=== PATIENT | male | born 1940 | race Asian ===

== ENCOUNTER 2017-02-27 04:08 | Inpatient (IN) | payer MEDICARE, OTHER ==
[2017-02-26 14:06] LABS: ASPARTATE AMINO TRANSFERASE 28 U/L (15-37); BLOOD UREA NITROGEN 18 mg/dL (7-18)
[2017-02-26 14:14] LABS: PATH.CAST-FLAG NOT PRESENT; SPERM-FLAG NOT PRESENT; SRC-FLAG NOT PRESENT; XTAL-FLAG NOT PRESENT; YLC-FLAG NOT PRESENT
[~2017-02-27] VITALS: Ht 162.6 cm; Wt 76.0 kg
[~2017-02-27 04:08] MED LIST: ASPI-515 PO; ATOR40TA78 PO; CETI10TA24 PO; CLOP75TA22 PO; IRON PO; LINA5TAB PO; METF500T4 PO; NITR0.4T SL; PIOG30TA8 PO; VALS160T3 PO
[2017-02-27 05:16] VITALS: BP_SYST 145; BP_SYST 146; BP_DIAS 72; BP_DIAS 75
[2017-02-27] MEDS ORDERED: CHLORHEXIDINE MOUTHWASH 15 ML UDC MM SCH (05:30)
[2017-02-27] MEDS ORDERED: DO NOT GIVE MC SCH (05:30)
[2017-02-27] MEDS ORDERED: INSULIN ASPART 100 UNITS/ML, PEN SQ-INSULIN SCH (06:00)
[2017-02-27] MEDS ORDERED: FENTANYL PF 1000 MCG/20ML ONE (06:48)
[2017-02-27] MEDS ORDERED: MIDAZOLAM 10MG/2 ML ONE (06:48)
[2017-02-27] MEDS ORDERED: POTASSIUM CHLORIDE 80 MEQ, SODIUM BICARBONATE 8.4% 10 MEQ, MAGNESIUM SULFATE 0.5 GM, LI... IV PRN (07:30)
[2017-02-27] MEDS ORDERED: ALBUMIN HUMAN 5% 500 ML IV ONE (07:30)
[2017-02-27] MEDS ORDERED: MANNITOL PMX 20% 500 ML IVPB PRN (07:30)
[2017-02-27] MEDS ORDERED: EPINEPHRINE 2 MG in SODIUM CHLORIDE 0.9% 248 ML IV SCH (07:30)
[2017-02-27] MEDS ORDERED: REGULAR INSULIN 62.5 UNITS in SODIUM CHLORIDE 0.9% 249.375 ML IV PRN ×2 (07:30→11:20)
[2017-02-27] MEDS ORDERED: PHENYLEPHRINE 10 MG in SODIUM CHLORIDE 0.9% 249 ML IV PRN (07:30)
[2017-02-27] MEDS ORDERED: CEFUROXIME 1.5 GM in SODIUM CHLORIDE 0.9% 50 ML IVPB PRN (07:30)
[2017-02-27] MEDS ORDERED: DEXMEDETOMIDINE 200 MCG in SODIUM CHLORIDE 0.9% 48 ML IV SCH (07:30)
[2017-02-27] MEDS ORDERED: VANCOMYCIN 1,100 MG in SODIUM CHLORIDE 0.9% 250 ML IV PRN (07:30)
[2017-02-27] MEDS ORDERED: MUPIROCIN OINT 2%, 22GM TP SCH (09:00)
[2017-02-27] MEDS ORDERED: SODIUM CHLORIDE FLUSH 10ML SYR IVF SCH (09:00)
[2017-02-27] MEDS ORDERED: FENTANYL PF 250 MCG/5ML ONE (09:51)
[2017-02-27] MEDS ORDERED: SODIUM CHLORIDE 0.9% 1,000 ML IV PRN (11:20)
[2017-02-27] MEDS ORDERED: NITROGLYCERIN/D5W PMX 250 ML IV PRN (11:20)
[2017-02-27] MEDS ORDERED: DOBUTAMINE 250 MG in SODIUM CHLORIDE 0.9% 230 ML IV PRN (11:20)
[2017-02-27] MEDS ORDERED: DEXMEDETOMIDINE 200 MCG in SODIUM CHLORIDE 0.9% 48 ML IV PRN (11:20)
[2017-02-27] MEDS ORDERED: CLEVIDIPINE 50 ML IV PRN (11:20)
[2017-02-27] MEDS ORDERED: PROCHLORPERAZINE 5 MG/ML, 2ML IVPush PRN (11:30)
[2017-02-27] MEDS ORDERED: DEXTROSE 50%, 50ML SYRINGE IVPush PRN (11:30)
[2017-02-27] MEDS ORDERED: GLUCAGON 1 MG IM PRN (11:30)
[2017-02-27] MEDS ORDERED: SODIUM BICARB 8.4%, 50ML SYRINGE IV PRN (11:30)
[2017-02-27] MEDS ORDERED: BISACODYL 10 MG SUPP PR PRN (11:30)
[2017-02-27] MEDS ORDERED: MEPERIDINE/PF 25MG/0.5ML IVPush PRN (11:30)
[2017-02-27] MEDS ORDERED: DEXTROSE 4 GM TAB.CHEW PO PRN (11:30)
[2017-02-27] MEDS ORDERED: morphine SULFATE 10 MG/ML, 1ML IVPush PRN (11:30)
[2017-02-27] MEDS ORDERED: ACETAMINOPHEN 325 MG TABLET PO PRN (11:30)
[2017-02-27] MEDS ORDERED: BISACODYL 5 MG EC TABLET PO PRN (11:30)
[2017-02-27] MEDS ORDERED: ONDANSETRON 2MG/ML, 2ML IVPush PRN (11:30)
[2017-02-27] MEDS ORDERED: MIDAZOLAM 1 MG/ML, 5ML IVPush PRN (11:30)
[2017-02-27] MEDS ORDERED: ACETAMINOPHEN 650 MG SUPP PR PRN (11:30)
[2017-02-27] MEDS: KSCALE TO 4.5 IV SCH ×3 (11:30→23:30)
[2017-02-27] MEDS ORDERED: ALBUMIN HUMAN 25% 50 ML ONE (11:43)
[2017-02-27] MEDS ORDERED: SODIUM BICARB 8.4%, 50ML SYRINGE ONE (11:43)
[2017-02-27] MEDS ORDERED: CALCIUM CHLORIDE 10%, 10ML SYR ONE (11:43)
[2017-02-27] MEDS ORDERED: PROTAMINE SULFATE 10 MG/ML, 25ML ONE (11:43)
[2017-02-27] MEDS ORDERED: AMINOCAPROIC ACID 250 MG/ML, 20ML ONE (11:44)
[2017-02-27] MEDS ORDERED: HEPARIN 1,000 UNITS/ML, 10ML ONE (11:44)
[2017-02-27] MEDS ORDERED: LIDOCAINE 2% 100MG/5ML SYRINGE ONE (11:44)
[2017-02-27] MEDS ORDERED: PAPAVERINE 30 MG/ML, 2ML ONE (11:44)
[2017-02-27] MEDS ORDERED: HEPARIN 1,000 UNITS/ML, 30ML ONE (11:44)
[2017-02-27 11:54] LABS: ABG COLLECTION SITE ARTERIAL LINE
[2017-02-27] MEDS: MAGNESIUM SULFATE 1 GM in SODIUM CHLORIDE 0.9% 50 ML IVPB SCH (12:11)
[2017-02-27] MEDS ORDERED: POTASSIUM CHLORIDE 30 MEQ in SODIUM CHLORIDE 0.9% 100 ML IV ONE (12:30)
[2017-02-27 12:43] VITALS: BP 90/55
[2017-02-27 12:58] VITALS: BP 100/63
[2017-02-27 13:15] VITALS: BP 90/44
[2017-02-27 13:57] VITALS: BP 92/50
[2017-02-27] MEDS: LACTATED RINGERS 500 ML IVBOLUS PRN ×2 (14:06→15:37)
[2017-02-27] MEDS ORDERED: AMIODARONE 900 MG in DEXTROSE 5% 482 ML IV PRN (15:00)
[2017-02-27] MEDS ORDERED: AMIODARONE 150 MG in DEXTROSE 5% 100 ML IV ONE (15:00)
[2017-02-27] MEDS ORDERED: FILTER 0.22 MICRON IV PRN (15:30)
[2017-02-27] MEDS: PHENYLEPHRINE 10 MG in SODIUM CHLORIDE 0.9% 249 ML IV PRN ×3 (15:52→22:45)
[2017-02-27] MEDS: SODIUM BICARBONATE 1 MEQ/ML, 50ML VIAL IV PRN ×2 (16:29→17:29)
[2017-02-27] MEDS: EPINEPHRINE 2 MG in SODIUM CHLORIDE 0.9% 248 ML IV PRN ×3 (16:42→22:50)
[2017-02-27] MEDS ORDERED: POTASSIUM CHLORIDE PMX 100 ML IV ONE (18:30)
[2017-02-27] MEDS: CEFUROXIME 1.5 GM in SODIUM CHLORIDE 0.9% 50 ML IVPB SCH (18:42)
[2017-02-27] MEDS: VANCOMYCIN 1,100 MG in SODIUM CHLORIDE 0.9% 250 ML IVPB SCH (19:18)
[2017-02-27] MEDS: SODIUM CHLORIDE FLUSH 10ML SYR IVF SCH (20:42)
[2017-02-27] MEDS: MUPIROCIN OINT 2%, 22GM NAS SCH (20:42)
[2017-02-27] MEDS: HYDROcodone/APAP 10/325 MG TABLET PO PRN (20:42)
[2017-02-27] MEDS: DOCUSATE 100 MG CAPSULE PO SCH (20:42)
[2017-02-27] MEDS: INSULIN ASPART 100 UNITS/ML, PEN SQ-INSULIN PRN ×2 (22:48→23:55)
[2017-02-27] MEDS: OXYcodone IR 5MG TABLET PO PRN (23:58)
[2017-02-28] VITALS (9 sets, daily range): BP systolic 91–169; BP diastolic 58–106
[2017-02-28] MEDS: INSULIN ASPART 100 UNITS/ML, PEN SQ-INSULIN PRN ×3 (01:09→03:06)
[2017-02-28] MEDS: EPINEPHRINE 2 MG in SODIUM CHLORIDE 0.9% 248 ML IV PRN ×3 (01:57→09:22)
[2017-02-28] MEDS: PHENYLEPHRINE 10 MG in SODIUM CHLORIDE 0.9% 249 ML IV PRN ×3 (01:58→09:27)
[2017-02-28] MEDS: HYDROcodone/APAP 10/325 MG TABLET PO PRN ×2 (02:12→20:33)
[2017-02-28] MEDS: OXYcodone IR 5MG TABLET PO PRN (04:14)
[2017-02-28] MEDS: KSCALE TO 4.5 IV SCH ×3 (05:30→16:03)
[2017-02-28 05:59] LABS: ABG COLLECTION SITE ARTERIAL LINE
[2017-02-28 06:33] LABS: DIFF TOTAL CELLS COUNTED 100 CELL DIFF
[2017-02-28 06:40] LABS: POLYCHROMASIA 1+
[2017-02-28 06:43] LABS: BLOOD UREA NITROGEN 20 mg/dL (7-18)
[2017-02-28 06:47] LABS: VERIFY COUNTS? YES
[2017-02-28] MEDS ORDERED: ROCURONIUM 10 MG/ML ONE ×2 (07:07→11:53)
[2017-02-28] MEDS ORDERED: PROPOFOL 10 MG/ML, 20ML ONE ×2 (07:07→11:53)
[2017-02-28] MEDS: VANCOMYCIN 1,100 MG in SODIUM CHLORIDE 0.9% 250 ML IVPB SCH (08:57)
[2017-02-28] MEDS: CEFUROXIME 1.5 GM in SODIUM CHLORIDE 0.9% 50 ML IVPB SCH (08:57)
[2017-02-28] MEDS: DOCUSATE 100 MG CAPSULE PO SCH ×3 (09:00→20:33)
[2017-02-28] MEDS: ASPIRIN 81 MG TABLET EC PO SCH (09:00)
[2017-02-28] MEDS: PANTOPRAZOLE 40 MG IV IVPush SCH (09:13)
[2017-02-28] MEDS: MUPIROCIN OINT 2%, 22GM NAS SCH ×2 (09:13→20:18)
[2017-02-28] MEDS: SODIUM CHLORIDE FLUSH 10ML SYR IVF SCH ×2 (09:14→20:18)
[2017-02-28] MEDS ORDERED: DEXTROSE 50%, 50ML VIAL ONE (09:16)
[2017-02-28] MEDS ORDERED: DEXTROSE 50%, 50ML SYRINGE IVPush ONE (09:30)
[2017-02-28] MEDS ORDERED: FENTANYL PF 250 MCG/5ML ONE (10:38)
[2017-02-28] MEDS: MAGNESIUM SULFATE 1 GM in SODIUM CHLORIDE 0.9% 50 ML IVPB SCH (11:19)
[2017-02-28] MEDS: CHLORHEXIDINE MOUTHWASH 15 ML UDC MM SCH (11:30)
[2017-02-28] MEDS ORDERED: VASOPRESSIN 20 UNIT/ML, 1ML ONE (11:53)
[2017-02-28] MEDS ORDERED: MIDAZOLAM 10MG/2 ML ONE (12:27)
[2017-02-28] MEDS ORDERED: FENTANYL 100 MCG PATCH ONE (13:31)
[2017-02-28] MEDS ORDERED: FENTANYL PF 100 MCG/2ML ONE (13:32)
[2017-02-28] MEDS ORDERED: CLEVIDIPINE 100 ML IV ONE (13:49)
[2017-02-28] MEDS ORDERED: HEPARIN 1,000 UNITS/ML, 30ML ONE (13:55)
[2017-02-28] MEDS ORDERED: AMINOCAPROIC ACID 250 MG/ML, 20ML ONE (13:55)
[2017-02-28] MEDS ORDERED: FENTANYL PF 100 MCG/2ML IV ONE (14:00)
[2017-02-28] MEDS: LACTATED RINGERS 500 ML IVBOLUS PRN ×2 (14:00→22:00)
[2017-02-28 15:55] LABS: ABG COLLECTION SITE ARTERIAL LINE
[2017-02-28] MEDS: SODIUM BICARBONATE 1 MEQ/ML, 50ML VIAL IV PRN (16:13)
[2017-02-28] MEDS ORDERED: WARFARIN 5 MG TABLET PO-COUM ONE (18:00)
[2017-02-28 18:32] LABS: ABG COLLECTION SITE RIGHT RADIAL; COLLATERAL CIRCULATION TESTING NORMAL
[2017-03-01] MEDS: HYDROcodone/APAP 10/325 MG TABLET PO PRN ×4 (00:02→19:52)
[2017-03-01] MEDS: INSULIN ASPART 100 UNITS/ML, PEN SQ-INSULIN PRN ×3 (01:12→20:04)
[2017-03-01 04:52] LABS: ABG COLLECTION SITE RIGHT RADIAL; COLLATERAL CIRCULATION TESTING NORMAL
[2017-03-01 04:59] LABS: BLOOD UREA NITROGEN 24 mg/dL (7-18)
[2017-03-01 05:24] LABS: DIFF TOTAL CELLS COUNTED 100 CELL DIFF
[2017-03-01 05:25] LABS: POLYCHROMASIA 1+
[2017-03-01 05:26] LABS: ANISOCYTOSIS 1+
[2017-03-01 05:46] VITALS: BP 121/69
[2017-03-01 06:23] LABS: VERIFY COUNTS? YES
[2017-03-01] MEDS ORDERED: ALBUTEROL SULFATE 2.5 MG/3 ML ONE (06:42)
[2017-03-01] MEDS: ALBUTEROL SULFATE 2.5 MG/3 ML NPPB SCH ×4 (06:45→19:21)
[2017-03-01] MEDS: FUROSEMIDE 20 MG/2 ML IV SCH (08:59)
[2017-03-01] MEDS: SODIUM CHLORIDE FLUSH 10ML SYR IVF SCH ×2 (09:01→19:54)
[2017-03-01] MEDS: MUPIROCIN OINT 2%, 22GM NAS SCH ×2 (09:01→19:54)
[2017-03-01] MEDS: PANTOPRAZOLE 40 MG IV IVPush SCH (09:01)
[2017-03-01] MEDS: ASPIRIN 81 MG TABLET EC PO SCH (09:02)
[2017-03-01] MEDS: POTASSIUM CHLORIDE 10 MEQ TABLET.ER PO SCH (09:02)
[2017-03-01] MEDS: DOCUSATE 100 MG CAPSULE PO SCH (09:04)
[2017-03-01] MEDS: OXYcodone IR 5MG TABLET PO PRN ×2 (09:12→17:44)
[2017-03-01] MEDS: PIPERACILLIN/TAZO/PMX 3.375GM 50 ML IV SCH ×3 (11:47→20:39)
[2017-03-01] MEDS: CHLORHEXIDINE MOUTHWASH 15 ML UDC MM SCH ×2 (13:31)
[2017-03-01] MEDS: MAGNESIUM SULFATE 1 GM in SODIUM CHLORIDE 0.9% 50 ML IVPB SCH (13:32)
[2017-03-01] MEDS: ENOXAPARIN 40 MG/0.4 ML SQ SCH (14:34)
[2017-03-01] MEDS ORDERED: FUROSEMIDE 40 MG/4 ML IV ONE ×2 (15:30→20:00)
[2017-03-01] MEDS ORDERED: POTASSIUM CHLORIDE 10 MEQ TABLET.ER PO ONE (17:00)
[2017-03-01] MEDS ORDERED: WARFARIN 5 MG TABLET PO-COUM ONE (18:00)
[2017-03-02] MEDS: HYDROcodone/APAP 10/325 MG TABLET PO PRN ×2 (00:02→04:23)
[2017-03-02] MEDS: CHLORHEXIDINE MOUTHWASH 15 ML UDC MM SCH (00:02)
[2017-03-02] MEDS: PIPERACILLIN/TAZO/PMX 3.375GM 50 ML IV SCH ×4 (03:03→20:39)
[2017-03-02 04:42] LABS: BLOOD UREA NITROGEN 33 mg/dL (7-18)
[2017-03-02] MEDS: ALBUTEROL SULFATE 2.5 MG/3 ML NPPB SCH ×5 (05:06→19:38)
[2017-03-02] MEDS: INSULIN ASPART 100 UNITS/ML, PEN SQ-INSULIN PRN ×3 (05:14→11:49)
[2017-03-02 06:20] VITALS: BP 98/63
[2017-03-02] MEDS: MUPIROCIN OINT 2%, 22GM NAS SCH ×2 (08:31→20:38)
[2017-03-02] MEDS: POTASSIUM CHLORIDE 10 MEQ TABLET.ER PO SCH (08:31)
[2017-03-02] MEDS: ASPIRIN 81 MG TABLET EC PO SCH (08:31)
[2017-03-02] MEDS: PANTOPRAZOLE 40 MG IV IVPush SCH (08:31)
[2017-03-02] MEDS: SODIUM CHLORIDE FLUSH 10ML SYR IVF SCH ×2 (08:32→20:39)
[2017-03-02] MEDS: ENOXAPARIN 40 MG/0.4 ML SQ SCH (08:32)
[2017-03-02] MEDS: FUROSEMIDE 20 MG/2 ML IV SCH (08:32)
[2017-03-02 09:07] LABS: DIFF TOTAL CELLS COUNTED 100 CELL DIFF
[2017-03-02 09:10] LABS: ANISOCYTOSIS 1+; POLYCHROMASIA 1+; VERIFY COUNTS? YES
[2017-03-02] MEDS: ALBUTEROL SULFATE 2.5 MG/3 ML NPPB PRN (17:00)
[2017-03-02] MEDS ORDERED: WARFARIN 7.5 MG TABLET PO-COUM ONE (18:00)
[2017-03-02] MEDS ORDERED: INSULIN ASPART 100 UNITS/ML, PEN SQ-INSULIN PRN (20:00)
[2017-03-02] MEDS: DOCUSATE 100 MG CAPSULE PO SCH (20:38)
[2017-03-02] MEDS: INSULIN ASPART 100 UNITS/ML, PEN SQ-INSULIN SCH (20:38)
[2017-03-03] MEDS: INSULIN ASPART 100 UNITS/ML, PEN SQ-INSULIN SCH ×6 (00:30→20:30)
[2017-03-03] MEDS: PIPERACILLIN/TAZO/PMX 3.375GM 50 ML IV SCH ×4 (03:09→21:03)
[2017-03-03 05:00] LABS: BLOOD UREA NITROGEN 39 mg/dL (7-18)
[2017-03-03] MEDS: PANTOPRAZOLE 40 MG IV IVPush SCH (08:25)
[2017-03-03] MEDS: ASPIRIN 81 MG TABLET EC PO SCH (08:25)
[2017-03-03] MEDS: POTASSIUM CHLORIDE 10 MEQ TABLET.ER PO SCH (08:25)
[2017-03-03] MEDS: SODIUM CHLORIDE FLUSH 10ML SYR IVF SCH ×2 (08:26→21:03)
[2017-03-03] MEDS: MUPIROCIN OINT 2%, 22GM NAS SCH ×2 (08:26→21:03)
[2017-03-03] MEDS: ENOXAPARIN 40 MG/0.4 ML SQ SCH (08:26)
[2017-03-03] MEDS: DOCUSATE 100 MG CAPSULE PO SCH ×2 (08:26→21:03)
[2017-03-03] MEDS: ALBUTEROL SULFATE 2.5 MG/3 ML NPPB SCH (09:40)
[2017-03-03] MEDS ORDERED: CEFAZOLIN PMX 1GM/50ML 50 ML IVPB ONE (12:00)
[2017-03-03] MEDS ORDERED: WARFARIN 2 MG TABLET PO-COUM ONE (18:00)
[2017-03-04] MEDS: SODIUM CHLORIDE 0.9% 1,000 ML IV SCH ×3 (00:24→18:00)
[2017-03-04] MEDS: INSULIN ASPART 100 UNITS/ML, PEN SQ-INSULIN SCH ×6 (00:27→20:56)
[2017-03-04] MEDS: PIPERACILLIN/TAZO/PMX 3.375GM 50 ML IV SCH ×4 (03:20→21:45)
[2017-03-04 04:22] LABS: BLOOD UREA NITROGEN 33 mg/dL (7-18)
[2017-03-04] MEDS: PANTOPRAZOLE 40 MG IV IVPush SCH (08:03)
[2017-03-04] MEDS: DOCUSATE 100 MG CAPSULE PO SCH ×2 (08:23→21:45)
[2017-03-04] MEDS: MUPIROCIN OINT 2%, 22GM NAS SCH (08:23)
[2017-03-04] MEDS: POTASSIUM CHLORIDE 10 MEQ TABLET.ER PO SCH (08:23)
[2017-03-04] MEDS: SODIUM CHLORIDE FLUSH 10ML SYR IVF SCH ×2 (08:46→21:45)
[2017-03-04] MEDS: ASPIRIN 81 MG TABLET EC PO SCH (08:51)
[2017-03-04] MEDS ORDERED: ENOXAPARIN 30 MG/0.3 ML SQ SCH (09:00)
[2017-03-04] MEDS ORDERED: FUROSEMIDE 40 MG/4 ML IV ONE (12:00)
[2017-03-05] MEDS: INSULIN ASPART 100 UNITS/ML, PEN SQ-INSULIN SCH ×6 (00:45→20:04)
[2017-03-05] MEDS ORDERED: FUROSEMIDE 20 MG/2 ML IV ONE (03:30)
[2017-03-05] MEDS: PIPERACILLIN/TAZO/PMX 3.375GM 50 ML IV SCH ×2 (03:58→08:50)
[2017-03-05 05:20] LABS: BLOOD UREA NITROGEN 28 mg/dL (7-18)
[2017-03-05 06:00] VITALS: BP 95/65
[2017-03-05] MEDS ORDERED: FUROSEMIDE 40 MG/4 ML IV ONE (06:00)
[2017-03-05] MEDS: DOCUSATE 100 MG CAPSULE PO SCH ×2 (08:50→20:04)
[2017-03-05] MEDS: SODIUM CHLORIDE FLUSH 10ML SYR IVF SCH ×2 (08:50→20:04)
[2017-03-05] MEDS: PANTOPROZOLE 40MG TABLET PO SCH (08:50)
[2017-03-05] MEDS: POTASSIUM CHLORIDE 10 MEQ TABLET.ER PO SCH (08:51)
[2017-03-05] MEDS: ASPIRIN 81 MG TABLET EC PO SCH (08:51)
[2017-03-05] MEDS: GUAIFENESIN ER 600 MG TABLET PO SCH ×2 (10:10→20:04)
[2017-03-05] MEDS: ALBUTEROL SULFATE 2.5 MG/3 ML NPPB PRN (13:58)
[2017-03-05] MEDS: FUROSEMIDE 40 MG/4 ML IV SCH (16:40)
[2017-03-06 05:01] LABS: BLOOD UREA NITROGEN 22 mg/dL (7-18)
[2017-03-06 06:30] VITALS: BP 107/68
[2017-03-06] MEDS: POTASSIUM CHLORIDE 20 MEQ TAB.ER.PRT PO SCH ×2 (08:00→17:39)
[2017-03-06] MEDS: ASPIRIN 81 MG TABLET EC PO SCH (08:20)
[2017-03-06] MEDS: DOCUSATE 100 MG CAPSULE PO SCH ×2 (08:20→19:27)
[2017-03-06] MEDS: PANTOPROZOLE 40MG TABLET PO SCH (08:20)
[2017-03-06] MEDS: POTASSIUM CHLORIDE 10 MEQ TABLET.ER PO SCH (08:20)
[2017-03-06] MEDS: GUAIFENESIN ER 600 MG TABLET PO SCH ×2 (08:20→17:39)
[2017-03-06] MEDS: FUROSEMIDE 40 MG/4 ML IV SCH ×2 (08:21→17:39)
[2017-03-06] MEDS: SODIUM CHLORIDE FLUSH 10ML SYR IVF SCH ×2 (09:00→19:27)
[2017-03-06] MEDS: INSULIN ASPART 100 UNITS/ML, PEN SQ-INSULIN SCH ×4 (09:19→19:36)
[2017-03-07 03:39] LABS: BLOOD UREA NITROGEN 20 mg/dL (7-18)
[2017-03-07 06:49] VITALS: BP 111/71
[2017-03-07] MEDS: INSULIN ASPART 100 UNITS/ML, PEN SQ-INSULIN SCH ×4 (07:00→20:10)
[2017-03-07] MEDS ORDERED: MIDAZOLAM 1 MG/ML, 5ML ONE (07:49)
[2017-03-07] MEDS ORDERED: FENTANYL PF 100 MCG/2ML ONE (07:49)
[2017-03-07] MEDS ORDERED: CEFAZOLIN 1,000 MG ONE (07:50)
[2017-03-07] MEDS ORDERED: LIDOCAINE 2%, 20ML ONE (07:50)
[2017-03-07] MEDS ORDERED: CEFAZOLIN PMX 1GM/50ML 50 ML ONE (07:50)
[2017-03-07] MEDS: PANTOPROZOLE 40MG TABLET PO SCH (12:16)
[2017-03-07] MEDS: ASPIRIN 81 MG TABLET EC PO SCH (12:16)
[2017-03-07] MEDS: POTASSIUM CHLORIDE 20 MEQ TAB.ER.PRT PO SCH ×2 (12:16→18:08)
[2017-03-07] MEDS: GUAIFENESIN ER 600 MG TABLET PO SCH ×2 (12:16→20:10)
[2017-03-07] MEDS: SODIUM CHLORIDE FLUSH 10ML SYR IVF SCH ×2 (12:18→20:10)
[2017-03-07] MEDS: DOCUSATE 100 MG CAPSULE PO SCH ×2 (12:18→20:10)
[2017-03-07] MEDS: FUROSEMIDE 40 MG/4 ML IV SCH ×3 (12:18→20:13)
[2017-03-07] MEDS: CEFAZOLIN PMX 1GM/50ML 50 ML IVPB SCH (16:27)
[2017-03-07] MEDS ORDERED: WARFARIN 1 MG TABLET PO-COUM ONE (18:00)
[2017-03-08] MEDS: CEFAZOLIN PMX 1GM/50ML 50 ML IVPB SCH (00:02)
[2017-03-08 04:39] LABS: BLOOD UREA NITROGEN 19 mg/dL (7-18)
[2017-03-08 06:30] VITALS: BP 98/66
[2017-03-08] MEDS: ASPIRIN 81 MG TABLET EC PO SCH (08:15)
[2017-03-08] MEDS: POTASSIUM CHLORIDE 20 MEQ TAB.ER.PRT PO SCH ×2 (08:15→17:53)
[2017-03-08] MEDS: SODIUM CHLORIDE FLUSH 10ML SYR IVF SCH ×2 (08:15→21:42)
[2017-03-08] MEDS: GUAIFENESIN ER 600 MG TABLET PO SCH ×2 (08:15→21:42)
[2017-03-08] MEDS: PANTOPROZOLE 40MG TABLET PO SCH (08:15)
[2017-03-08] MEDS: DOCUSATE 100 MG CAPSULE PO SCH ×2 (08:15→20:11)
[2017-03-08] MEDS: FUROSEMIDE 40 MG/4 ML IV SCH ×2 (08:15→17:53)
[2017-03-08] MEDS: INSULIN ASPART 100 UNITS/ML, PEN SQ-INSULIN SCH ×4 (08:16→21:43)
[2017-03-08] MEDS ORDERED: WARFARIN 2 MG TABLET PO-COUM ONE (18:00)
[2017-03-08 19:37] VITALS: BP 105/70
[2017-03-08 22:15] VITALS: BP 98/65
[2017-03-09 03:15] VITALS: BP 93/65
[2017-03-09 04:54] LABS: BLOOD UREA NITROGEN 17 mg/dL (7-18)
[2017-03-09 06:45] VITALS: BP 109/73
[2017-03-09] MEDS: INSULIN ASPART 100 UNITS/ML, PEN SQ-INSULIN SCH ×4 (07:00→21:00)
[2017-03-09] MEDS ORDERED: POTASSIUM CHLORIDE 20 MEQ TAB.ER.PRT PO ONE (09:00)
[2017-03-09] MEDS: POTASSIUM CHLORIDE 20 MEQ TAB.ER.PRT PO SCH ×2 (09:00→17:13)
[2017-03-09] MEDS ORDERED: TEMPLATE NON-FORMULARY MED. (Linagliptin** (Tradjenta**) 5 MG) PO SCH (09:00)
[2017-03-09] MEDS ORDERED: PIOGLITAZONE HCL 30 MG PO SCH (09:00)
[2017-03-09] MEDS: FUROSEMIDE 40 MG/4 ML IV SCH ×2 (09:12→17:03)
[2017-03-09] MEDS: PANTOPROZOLE 40MG TABLET PO SCH (09:13)
[2017-03-09] MEDS: SODIUM CHLORIDE FLUSH 10ML SYR IVF SCH ×2 (09:14→21:00)
[2017-03-09] MEDS: ASPIRIN 81 MG TABLET EC PO SCH (09:14)
[2017-03-09] MEDS ORDERED: SODIUM BICARBONATE 4.2%, 5ML ONE (09:18)
[2017-03-09] MEDS ORDERED: LIDOCAINE 1%, 20ML ONE (09:18)
[2017-03-09] MEDS: DOCUSATE 100 MG CAPSULE PO SCH ×2 (09:22→20:40)
[2017-03-09] MEDS: GUAIFENESIN ER 600 MG TABLET PO SCH ×2 (09:23→20:40)
[2017-03-09] MEDS: metFORMIN 500 MG TABLET PO SCH ×2 (10:47→20:40)
[2017-03-09] MEDS: PIOGLITAZONE 15 MG TABLET PO SCH (11:44)
[2017-03-09 13:20] VITALS: BP 96/66
[2017-03-09] MEDS: WARFARIN 3 MG TABLET PO-COUM ONE ×2 (18:08→20:40)
[2017-03-09 20:20] VITALS: BP 89/57
[2017-03-09] MEDS ORDERED: ATORVASTATIN 40 MG TABLET PO SCH (21:00)
[2017-03-10 01:20] VITALS: BP 89/60
[2017-03-10 04:55] VITALS: BP 97/67
[2017-03-10] MEDS ORDERED: HYDROcodone/APAP 5/325 TABLET ONE (05:06)
[2017-03-10] MEDS: HYDROcodone/APAP 5/325 TABLET PO PRN ×3 (05:10→15:43)
[2017-03-10 07:22] VITALS: BP 102/68
[2017-03-10] MEDS ORDERED: HYDR-3240 PO (08:07)
[2017-03-10] MEDS ORDERED: FURO40TA6 PO (08:07)
[2017-03-10] MEDS ORDERED: POTA20TA6 PO ×2 (08:07→08:17)
[2017-03-10] MEDS ORDERED: WARF2TAB PO (08:07)
[2017-03-10] MEDS: INSULIN ASPART 100 UNITS/ML, PEN SQ-INSULIN SCH ×2 (08:28→13:02)
[2017-03-10] MEDS: FUROSEMIDE 40 MG/4 ML IV SCH (08:30)
[2017-03-10] MEDS: POTASSIUM CHLORIDE 20 MEQ TAB.ER.PRT PO SCH (08:31)
[2017-03-10] MEDS: PANTOPROZOLE 40MG TABLET PO SCH (08:31)
[2017-03-10] MEDS: DOCUSATE 100 MG CAPSULE PO SCH (08:32)
[2017-03-10] MEDS: GUAIFENESIN ER 600 MG TABLET PO SCH (08:32)
[2017-03-10] MEDS: metFORMIN 500 MG TABLET PO SCH (08:32)
[2017-03-10] MEDS: SODIUM CHLORIDE FLUSH 10ML SYR IVF SCH (08:32)
[2017-03-10] MEDS: PIOGLITAZONE 15 MG TABLET PO SCH (08:32)
[2017-03-10] MEDS: ASPIRIN 81 MG TABLET EC PO SCH (08:33)
[2017-03-10 13:00] VITALS: BP 92/58
[2017-03-10] MEDS ORDERED: WARFARIN 2 MG TABLET PO-COUM STA (16:29)
== END 2017-03-10 16:40 | disposition home health service (06) | DRG 219 ==
LOC: 5SO 04:08 → CCU 07:39 → CSU 07:54 → 5SO 03-08 18:34
PROVIDERS: ADMIT Thoracic Surgery (Cardiothoracic Vascular Surgery); ATTEND Thoracic Surgery (Cardiothoracic Vascular Surgery)
PROC: 02RF08Z Replacement of Aortic Valve with Zooplastic Tissue, Open Approach (ICD-10-PCS; 2017-02-27)
PROC: 02100Z9 Bypass Coronary Artery, One Artery from Left Internal Mammary, Open Approach (ICD-10-PCS; 2017-02-27)
PROC: 021009W Bypass Coronary Artery, One Artery from Aorta with Autologous Venous Tissue, Open Approach (ICD-10-PCS; 2017-02-27)
PROC: 06BP4ZZ Excision of Right Saphenous Vein, Percutaneous Endoscopic Approach (ICD-10-PCS; 2017-02-27)
PROC: 30233R1 Transfusion of Nonautologous Platelets into Peripheral Vein, Percutaneous Approach (ICD-10-PCS; 2017-02-27)
PROC: 5A1935Z Respiratory Ventilation, Less than 24 Consecutive Hours (ICD-10-PCS; 2017-02-27)
PROC: 0BH17EZ Insertion of Endotracheal Airway into Trachea, Via Natural or Artificial Opening (ICD-10-PCS; 2017-02-27)
PROC: B246ZZ4 Ultrasonography of Right and Left Heart, Transesophageal (ICD-10-PCS; 2017-02-27)
PROC: 5A1221Z Performance of Cardiac Output, Continuous (ICD-10-PCS; 2017-02-27)
PROC: 5A1223Z Performance of Cardiac Pacing, Continuous (ICD-10-PCS; 2017-02-27)
PROC: 0WCC0ZZ Extirpation of Matter from Mediastinum, Open Approach (ICD-10-PCS; 2017-02-28)
PROC: 0W3D0ZZ Control Bleeding in Pericardial Cavity, Open Approach (ICD-10-PCS; 2017-02-28)
PROC: 30233N1 Transfusion of Nonautologous Red Blood Cells into Peripheral Vein, Percutaneous Approach (ICD-10-PCS; 2017-02-28)
PROC: 0JH606Z Insertion of Pacemaker, Dual Chamber into Chest Subcutaneous Tissue and Fascia, Open Approach (ICD-10-PCS; 2017-03-07)
PROC: 02H63JZ Insertion of Pacemaker Lead into Right Atrium, Percutaneous Approach (ICD-10-PCS; 2017-03-07)
PROC: 02HK3JZ Insertion of Pacemaker Lead into Right Ventricle, Percutaneous Approach (ICD-10-PCS; 2017-03-07)
PROC: 0W993ZZ Drainage of Right Pleural Cavity, Percutaneous Approach (ICD-10-PCS; principal; 2017-03-09)
PROC: BB4BZZZ Ultrasonography of Pleura (ICD-10-PCS; 2017-03-09)
DX: I25.119 Atherosclerotic heart disease of native coronary artery with unspecified angina pectoris (principal); J18.9 Pneumonia, unspecified organism; I44.2 Atrioventricular block, complete; J90 Pleural effusion, not elsewhere classified; J94.2 Hemothorax; N17.9 Acute kidney failure, unspecified; T82.855A Stenosis of coronary artery stent, initial encounter; I97.631 Postprocedural hematoma of a circulatory system organ or structure following cardiac bypass; I35.0 Nonrheumatic aortic (valve) stenosis; I45.9 Conduction disorder, unspecified; E11.22 Type 2 diabetes mellitus with diabetic chronic kidney disease; E78.5 Hyperlipidemia, unspecified; E87.6 Hypokalemia; F41.9 Anxiety disorder, unspecified; I12.9 Hypertensive chronic kidney disease with stage 1 through stage 4 chronic kidney disease, or unspecified chronic kidney disease; I48.91 Unspecified atrial fibrillation; N18.2 Chronic kidney disease, stage 2 (mild); N50.82 Scrotal pain; R31.9 Hematuria, unspecified; S30.1XXA Contusion of abdominal wall, initial encounter; Y83.1 Surgical operation with implant of artificial internal device as the cause of abnormal reaction of the patient, or of later complication, without mention of misadventure at the time of the procedure; Z51.5 Encounter for palliative care; Z87.891 Personal history of nicotine dependence; R06.89 Other abnormalities of breathing; I95.9 Hypotension, unspecified; Y83.8 Other surgical procedures as the cause of abnormal reaction of the patient, or of later complication, without mention of misadventure at the time of the procedure; Y82.8 Other medical devices associated with adverse incidents
CPT/HCPCS: 33208; 36415; 36600; 71010; 71020; 80048; 80053; 81001; 82040; 82330; 82800; 82803; 82810; 82947; 82962; 83036; 83735; 84132; 84295; 85014; 85018; 85025; 85049; 85347; 85384; 85610; 85730; 86850; 86900; 86923; 87070; 87081; 87205; 88305; 93005; 93312; 93321; 93325; 93880; 94002; 94150; 94640; C1768; C1779; C1785; C1892; J0690; J0697; J1644; J1650; J1815; J1940; J2250; J2405; J2543; J2704; J2720; J3010; J3370; J3475; J3480; J3490; J7120; J7613; P9045; P9047; C1760; C9113; C9248; J0171; J0282; J0780; J2370; J2440; J7030; J7050; J7060; P9016; P9035

== ENCOUNTER → 2017-08-28 | Outpatient (CLI) | payer MEDICARE, OTHER ==
[~2017-08-28] MED LIST changes: +ALPR0.254 PO; +CARV3.1212 PO; -CLOP75TA22 PO; +CLOP75TA52 PO; +FERR325T18 PO; +FURO40TA6 PO; +HYDR-3240 PO; +LIDO700A5 TD; +PIOG30TA23 PO; -PIOG30TA8 PO; +POLY17PO5 PO; +POTA20TA6 PO; +REGADENOSON 0.4 MG/5 ML SYRINGE ONE; +TRAM50TA2 PO; +WARF2TAB PO
== END | disposition home or self-care (01) ==
LOC: CFH 12:47
PROVIDERS: ATTEND Internal Medicine Cardiovascular Disease
DX: I25.5 Ischemic cardiomyopathy (principal); I25.10 Atherosclerotic heart disease of native coronary artery without angina pectoris; Z95.1 Presence of aortocoronary bypass graft
CPT/HCPCS: 78452; 93017; A9502; J2785

== ENCOUNTER → 2018-07-16 | Outpatient (CLI) | payer MEDICARE, OTHER ==
[~2018-07-16] MED LIST changes: +CLOP75TA PO; +LISI5TAB7 PO; +METF500T17 PO; -METF500T4 PO; +NITR0.6T4 SL; -REGADENOSON 0.4 MG/5 ML SYRINGE ONE
== END | disposition home or self-care (01) ==
LOC: CFH 15:25
PROVIDERS: ATTEND Internal Medicine Cardiovascular Disease
DX: R01.1 Cardiac murmur, unspecified (principal); E78.2 Mixed hyperlipidemia; I25.10 Atherosclerotic heart disease of native coronary artery without angina pectoris; I35.0 Nonrheumatic aortic (valve) stenosis; I65.23 Occlusion and stenosis of bilateral carotid arteries; E11.9 Type 2 diabetes mellitus without complications; R01.0 Benign and innocent cardiac murmurs; Z95.0 Presence of cardiac pacemaker
CPT/HCPCS: 71046

== ENCOUNTER 2018-07-17 12:12 | Observation (INO) | payer MEDICARE ==
[~2018-07-17] VITALS: Ht 162.6 cm; Wt 67.6 kg
[~2018-07-17 12:12] MED LIST changes: -NITR0.6T4 SL
[2018-07-17 14:03] VITALS: BP 156/82
[2018-07-17] MEDS ORDERED: NITR0.6T4 SL (14:07)
[2018-07-17] MEDS ORDERED: TICAGRELOR 90 MG TABLET ONE (15:53)
[2018-07-17] MEDS ORDERED: MIDAZOLAM 1 MG/ML, 5ML ONE (15:53)
[2018-07-17] MEDS ORDERED: BIVALIRUDIN 250 MG ONE (15:53)
[2018-07-17] MEDS ORDERED: FENTANYL PF 100 MCG/2ML ONE (15:53)
[2018-07-17] MEDS ORDERED: VERAPAMIL 2.5 MG/ML, 2ML ONE (15:53)
[2018-07-17] MEDS ORDERED: HEPARIN 1,000 UNITS/ML, 10ML ONE (15:53)
[2018-07-17 16:13] LABS: BASOPHILS # (AUTO) 0.02 x10^3/uL (0-0.1); BASOPHILS % (AUTO) 0 % (0-1); EOSINOPHILS # (AUTO) 0.24 x10^3/uL (0-0.4); EOSINOPHILS % (AUTO) 3 % (1-7); LYMPHOCYTES # (AUTO) 2.09 x10^3/uL (1-3.4); LYMPHOCYTES % (AUTO) 23 % (22-44); MD NO; MEAN CORPUSCULAR HEMOGLOBIN 31.5 pg (27.5-34.5); MEAN CORPUSCULAR HGB CONC 33.5 g/dL (33.2-36.2); MEAN CORPUSCULAR VOLUME 94.1 fL (81-97); MEAN PLATELET VOLUME 7.4 fL (7.4-10.4); MONOCYTES # (AUTO) 1.07 x10^3/uL (0.2-0.8); MONOCYTES % (AUTO) 12 % (2-9); NEUTROPHILS % (AUTO) 63 % (42-75); PLATELET COUNT 164 x10^3/uL (130-400); RED BLOOD COUNT 4.73 x10^6/uL (4.38-5.82); RED CELL DISTRIBUTION WIDTH 14.1 % (9.4-14.8)
[2018-07-17] MEDS: SODIUM CHLORIDE 0.9% 1,000 ML IV SCH (17:07)
[2018-07-17] MEDS ORDERED: CETIRIZINE 10 MG TABLET PO SCH (17:30)
[2018-07-17] MEDS ORDERED: NITROGLYCERIN 0.4 MG BOTTLE (25 TABS) SL PRN (18:00)
[2018-07-17] MEDS: CARVEDILOL 3.125 MG TABLET PO SCH (18:44)
[2018-07-17 18:45] VITALS: BP 157/87
[2018-07-17] MEDS: metFORMIN 500 MG TABLET PO SCH (20:35)
[2018-07-17] MEDS ORDERED: ATORVASTATIN 40 MG TABLET PO SCH (21:00)
[2018-07-18] MEDS: SODIUM CHLORIDE 0.9% 1,000 ML IV SCH ×2 (01:07→09:07)
[2018-07-18 01:40] VITALS: BP 108/68
[2018-07-18] MEDS: CARVEDILOL 3.125 MG TABLET PO SCH (05:41)
[2018-07-18 05:59] LABS: ALBUMIN 3.2 g/dL (3.4-5.0); ANION GAP 8 mmol/L (5-15); CALCIUM 8.7 mg/dL (8.5-10.1); CHLORIDE 104 mmol/L (98-107)
[2018-07-18 06:00] LABS: CREATININE 1.28 mg/dL (0.7-1.3)
[2018-07-18 07:05] VITALS: BP 103/67
[2018-07-18] MEDS ORDERED: PIOGLITAZONE 15 MG TABLET PO SCH (09:00)
[2018-07-18] MEDS ORDERED: ASPIRIN 81 MG TABLET EC PO SCH (09:00)
[2018-07-18] MEDS: metFORMIN 500 MG TABLET PO SCH (09:00)
[2018-07-18] MEDS ORDERED: CLOPIDOGREL 75 MG TABLET PO SCH (09:00)
[2018-07-18] MEDS ORDERED: LINAGLIPTIN 5 MG TAB PO SCH (09:00)
[2018-07-18] MEDS ORDERED: NITR0.6T4 SL (09:12)
== END 2018-07-18 10:02 | disposition home or self-care (01) ==
LOC: CACL 12:12 → 5SO 17:08 → DCLOUNGE 07-18 09:54
PROVIDERS: ADMIT Internal Medicine Cardiovascular Disease; ATTEND Internal Medicine Cardiovascular Disease
DX: I25.10 Atherosclerotic heart disease of native coronary artery without angina pectoris (principal); E78.5 Hyperlipidemia, unspecified; I35.0 Nonrheumatic aortic (valve) stenosis; Z95.0 Presence of cardiac pacemaker; Z95.5 Presence of coronary angioplasty implant and graft; Z79.899 Other long term (current) drug therapy
CPT/HCPCS: 36415; 80048; 82040; 85014; 85018; 85025; 92920; 93459; 99156; 99157; C1725; C1769; C1887; C1894; G0378; J0583; J1644; J2250; J3010; Q9967; 92928

== ENCOUNTER 2018-12-10 14:52 | Inpatient (IN) | payer MEDICARE ==
[~2018-12-10] VITALS: Ht 162.6 cm; Wt 64.5 kg
[~2018-12-10 14:52] MED LIST changes: +NITR0.6T4 SL
[2018-12-10 15:23] VITALS: BP 153/77
[2018-12-10 15:24] VITALS: BP 153/77
[2018-12-10 15:51] LABS: BASOPHILS # (AUTO) 0.03 x10^3/uL (0-0.1); BASOPHILS % (AUTO) 0 % (0-1); EOSINOPHILS # (AUTO) 0.16 x10^3/uL (0-0.4); EOSINOPHILS % (AUTO) 2 % (1-7); LYMPHOCYTES # (AUTO) 1.82 x10^3/uL (1-3.4); LYMPHOCYTES % (AUTO) 26 % (22-44); MD NO; MEAN CORPUSCULAR HEMOGLOBIN 30.2 pg (27.5-34.5); MEAN CORPUSCULAR VOLUME 94.4 fL (81-97); MONOCYTES # (AUTO) 0.65 x10^3/uL (0.2-0.8); MONOCYTES % (AUTO) 9 % (2-9); NEUTROPHILS % (AUTO) 62 % (42-75); PLATELET COUNT 241 x10^3/uL (130-400); RED BLOOD COUNT 4.72 x10^6/uL (4.38-5.82); RED CELL DISTRIBUTION WIDTH 15.2 % (9.4-14.8)
[2018-12-10 15:58] LABS: INTERNATIONAL NORMALIZED RATIO 1.11 (0.93-1.1); PROTHROMBIN TIME 11.7 Seconds (9.6-11.5)
[2018-12-10 16:00] LABS: ALBUMIN 3.7 g/dL (3.4-5.0); ANION GAP 4 mmol/L (5-15); CALCIUM 8.8 mg/dL (8.5-10.1); CHLORIDE 109 mmol/L (98-107)
[2018-12-10 16:09] LABS: ALANINE AMINOTRANSFERASE 28 U/L (12-78); ALKALINE PHOSPHATASE 87 U/L (45-117); BILIRUBIN,TOTAL 0.4 mg/dL (0.2-1.0); CHOL/HDL RATIO 2.2; CHOLESTEROL, TOTAL 143 mg/dL (140-239); CREATININE 1.41 mg/dL (0.7-1.3); HDL CHOL % 46 % (26-37); HDL CHOLESTEROL (DIRECT) 66 mg/dL (40-60); LDL CHOLESTEROL,CALCULATED 68 mg/dL (54-169); T4 (THYROXINE) 11.9 mcg/dL (4.5-12.1); TOTAL PROTEIN 8.1 g/dL (6.4-8.2); TRIGLYCERIDES 44 mg/dL (50-200); VLDL CHOLESTEROL 9 mg/dL (0-25)
[2018-12-10] MEDS ORDERED: CARV6.252 PO (17:33)
[2018-12-10] MEDS ORDERED: CARVEDILOL 6.25 MG TABLET PO SCH (18:00)
[2018-12-10] MEDS ORDERED: HEPARIN 5,000 UNITS/ML, 1ML IV ONE (18:30)
[2018-12-10] MEDS ORDERED: HEPARIN 25,000 UNITS/500ML PMX 500 ML IV PRN (18:30)
[2018-12-10] MEDS ORDERED: HEPARIN 5,000 UNITS/ML, 1ML IV PRN (18:30)
[2018-12-10 20:03] VITALS: BP 107/63
[2018-12-10] MEDS: ATORVASTATIN 80 MG TABLET PO SCH (20:17)
[2018-12-10] MEDS ORDERED: CARVEDILOL 3.125 MG TABLET PO SCH ×2 (21:00→21:30)
[2018-12-10] MEDS ORDERED: CARVEDILOL 3.125 MG TABLET PO ONE (21:30)
[2018-12-11 03:11] VITALS: BP 136/79
[2018-12-11 05:20] VITALS: BP 125/72
[2018-12-11] MEDS: CARVEDILOL 3.125 MG TABLET PO SCH ×2 (05:21→18:13)
[2018-12-11] MEDS: ASPIRIN 81 MG TABLET EC PO SCH (05:21)
[2018-12-11 07:14] VITALS: BP 124/71
[2018-12-11] MEDS: CLOPIDOGREL 75 MG TABLET PO SCH (08:07)
[2018-12-11] MEDS: PIOGLITAZONE 15 MG TABLET PO SCH (09:00)
[2018-12-11] MEDS: LINAGLIPTIN 5 MG TAB PO SCH (09:00)
[2018-12-11] MEDS: SODIUM CHLORIDE 0.9% 1,000 ML IV SCH ×2 (11:00→18:14)
[2018-12-11 12:45] VITALS: BP 163/68
[2018-12-11] MEDS ORDERED: BIVALIRUDIN 250 MG ONE ×2 (15:17→16:46)
[2018-12-11] MEDS ORDERED: VERAPAMIL 2.5 MG/ML, 2ML ONE (15:17)
[2018-12-11] MEDS ORDERED: TICAGRELOR 90 MG TABLET ONE (15:17)
[2018-12-11] MEDS ORDERED: FENTANYL PF 100 MCG/2ML ONE (15:17)
[2018-12-11] MEDS ORDERED: MIDAZOLAM 1 MG/ML, 5ML ONE (15:17)
[2018-12-11] MEDS ORDERED: LIDOCAINE 1%, 20ML ONE (15:18)
[2018-12-11] MEDS ORDERED: HEPARIN 1,000 UNITS/ML, 10ML ONE (15:18)
[2018-12-11 18:00] VITALS: BP 110/68
[2018-12-11 18:48] VITALS: BP 100/64
[2018-12-11] MEDS: ATORVASTATIN 80 MG TABLET PO SCH (21:46)
[2018-12-12 03:29] VITALS: BP 123/70
[2018-12-12] MEDS: SODIUM CHLORIDE 0.9% 1,000 ML IV SCH (03:37)
[2018-12-12 05:26] VITALS: BP 132/72
[2018-12-12] MEDS: ASPIRIN 81 MG TABLET EC PO SCH (05:34)
[2018-12-12] MEDS: CARVEDILOL 3.125 MG TABLET PO SCH (05:34)
[2018-12-12 06:45] VITALS: BP 107/62
[2018-12-12] MEDS: LINAGLIPTIN 5 MG TAB PO SCH (07:55)
[2018-12-12] MEDS: CLOPIDOGREL 75 MG TABLET PO SCH (07:55)
[2018-12-12] MEDS: PIOGLITAZONE 15 MG TABLET PO SCH (07:56)
== END 2018-12-12 13:16 | disposition home or self-care (01) | DRG 246 ==
LOC: CARD 14:52 → 5SO 15:15 → DCLOUNGE 12-12 12:58
PROVIDERS: ADMIT Internal Medicine Cardiovascular Disease; ATTEND Internal Medicine Cardiovascular Disease
PROC: 027136Z Dilation of Coronary Artery, Two Arteries with Three Drug-eluting Intraluminal Devices, Percutaneous Approach (ICD-10-PCS; principal; 2018-12-11)
PROC: 4A023N7 Measurement of Cardiac Sampling and Pressure, Left Heart, Percutaneous Approach (ICD-10-PCS; 2018-12-11)
PROC: B2181ZZ Fluoroscopy of Left Internal Mammary Bypass Graft using Low Osmolar Contrast (ICD-10-PCS; 2018-12-11)
PROC: B2111ZZ Fluoroscopy of Multiple Coronary Arteries using Low Osmolar Contrast (ICD-10-PCS; 2018-12-11)
DX: I25.110 Atherosclerotic heart disease of native coronary artery with unstable angina pectoris (principal); I50.33 Acute on chronic diastolic (congestive) heart failure; E78.5 Hyperlipidemia, unspecified; I10 Essential (primary) hypertension; I49.3 Ventricular premature depolarization; Z87.891 Personal history of nicotine dependence; Z95.0 Presence of cardiac pacemaker; Z95.1 Presence of aortocoronary bypass graft; Z95.3 Presence of xenogenic heart valve; Z95.5 Presence of coronary angioplasty implant and graft; I11.0 Hypertensive heart disease with heart failure
CPT/HCPCS: 36415; 71046; 80053; 80061; 84436; 84481; 85025; 85520; 85610; 93306; 93455; 93880; 99156; 99157; C1760; C1769; C1894; C9600; C9601; G0378; J0583; J1644; J2250; J3010; J3490; C1725; C1874; C1887; J7030; Q9967